=== PATIENT | female | born 1985 | race African-American/Black ===

== ENCOUNTER 2021-11-10 21:44 | Emergency (ER) | payer OTHER ==
[2021-11-10 22:15] VITALS: BP 122/71; PULSE 79; RESP 18; TEMP 98.1; BMI 35.5
== END 2021-11-11 01:52 | disposition home or self-care (01) ==
LOC: JER 21:44
DX: M54.2 Cervicalgia (principal)
CPT/HCPCS: 70450-TC; 72125-TC; 72128-TC; 84703; 99284-25